=== PATIENT | female | born 1980 ===

== ENCOUNTER 2023-04-25 13:14 | Outpatient (OUT) | payer OTHER, SELFPAY ==
--- NOTE | 2023-04-25 13:22 | XR_ITS ---
The [address] [address] Patient Name: YNES MARRERO MRN: [id number] date: 1980 Sex: F Assigned Patient Location: [facility] Current Patient Location: Accession/Order Number: [id number] Exam Date: 04/25/2023 13:22 Report Date: 04/26/2023 07:34 At the request of: HEIDE VALLE Procedure: XR foot RT min 3V PROCEDURE: XR ankle RT min 3V, XR foot RT min 3V COMPARISON: 04/21/2023 HISTORY: RIGHT ANKLE PAIN FINDINGS: BONES:No acute fracture or dislocation. Moderate enthesopathic spurring of the calcaneus at the Achilles and plantar insertions. Corticated calcific density lateral to the cuboid seen on the lateral projection. Remote injury is favored. SOFT TISSUES:Negative. No visible soft tissue swelling. EFFUSION:None visible. OTHER: Negative. XR/XR foot RT min 3V IMPRESSION: Moderate enthesopathic spurring of the calcaneus Electronically authenticated by: TANYA HARE Date: 04/26/2023 07:34
--- NOTE | 2023-04-25 13:22 | XR_ITS ---
The [address] [address] Patient Name: YNES MARRERO MRN: [id number] date: 1980 Sex: F Assigned Patient Location: [facility] Current Patient Location: Accession/Order Number: [id number] Exam Date: 04/25/2023 13:22 Report Date: 04/26/2023 07:34 At the request of: HEIDE VALLE Procedure: XR ankle RT min 3V PROCEDURE: XR ankle RT min 3V, XR foot RT min 3V COMPARISON: 04/21/2023 HISTORY: RIGHT ANKLE PAIN FINDINGS: BONES:No acute fracture or dislocation. Moderate enthesopathic spurring of the calcaneus at the Achilles and plantar insertions. Corticated calcific density lateral to the cuboid seen on the lateral projection. Remote injury is favored. SOFT TISSUES:Negative. No visible soft tissue swelling. EFFUSION:None visible. OTHER: Negative. XR/XR ankle RT min 3V IMPRESSION: Moderate enthesopathic spurring of the calcaneus Electronically authenticated by: TANYA HARE Date: 04/26/2023 07:34
== END 2023-04-25 13:15 | disposition home or self-care (01) ==
LOC: RAD 13:15
PROVIDERS: Visit Provider Physician Assistant
DX: M25.571 Pain in right ankle and joints of right foot (principal); M77.31 Calcaneal spur, right foot
CPT/HCPCS: 73610; 73630